=== PATIENT | female | born 1970 | race Two or more races ===

== ENCOUNTER 2024-04-23 02:07 | Emergency (ER) | payer MEDICAID, SELFPAY ==
[2024-04-23 02:08] VITALS: BMI 36.8
[2024-04-23 02:15] VITALS: BP 155/89; PULSE 84; RESP 19; TEMP 36.7; O2SAT 96
--- NOTE | 2024-04-23 02:50 | XR_ITS ---
Examination: CT abdomen and pelvis without contrast. Coronal 3-D reconstructions. Sagittal 2-D reconstructions. Date and time of exam:April 23, 2024 0307 hours COMPARISON: 12/17/2022 INDICATIONS: Onset right-sided flank pain today CTDI: vol (mGy): 6.71 DLP: (mGycm): 386 Technique: Axial images of the abdomen have been obtained, 3 mm slice thickness Intravenous contrast material has not been administered. Low dose protocols were performed. One or more of the following dose reduction techniques were used; automated exposure control, adjustment of the mA and/or KV according to patient size, use of iterative reconstruction technique. Findings: No focal liver or splenic lesions No gallstones No pancreatic or adrenal mass No renal or ureteral calculi, no hydronephrosis Normal appendix No bowel obstruction No bladder mass or bladder calculi IMPRESSION: No renal or ureteral calculi, no hydronephrosis Normal appendix
--- NOTE | 2024-04-23 02:51 | EDRME_ITS ---
Rapid Medical Screening Exam [facility] Arrival date/time: 04/23/24 02:07 53F with history of pancreatitis and pre-DM presents to ED with 1 day of flank pain (R>L). Chief Complaint: Back Pain/Injury Vital signs: Vital Signs Temperature 98.1 F 04/23/24 02:15 Pulse Rate 84 04/23/24 02:15 Respiratory Rate 19 04/23/24 02:15 Blood Pressure 155/89 H 04/23/24 02:15 Pulse Oximetry (%) 96 04/23/24 02:15 Oxygen Delivery Method Room Air 04/23/24 02:15
[2024-04-23] MEDS: KETOROLAC INJ 60 MG/2 ML VIAL IM (03:41)
[2024-04-23 03:45] LABS: Collection Type, Urine Clean Catch
[2024-04-23 03:53] LABS: Basophils % (Auto) 0 % (0-2.5); Eosinophils # (Auto) 0.1 Thou/mm3 (0.0-0.5); Eosinophils % (Auto) 1 % (0-10); Hematocrit 40.2 % (36.0-46.0); Hemoglobin 13.3 g/dL (12.0-16.0); Immature Granulocytes % (Auto) 0 % (0-0); Immature Granulocytes Auto 0.02 Thou/mm3 (0.00-0.00); Lymphocytes # (Auto) 2.6 Thou/mm3 (1.0-4.8); Lymphocytes % (Auto) 25 % (10-50); Mean Corpuscular HGB Conc 33.1 g/dl (31.0-37.0); Mean Corpuscular Hemoglobin 30.3 pg (25.0-35.0); Mean Corpuscular Volume 92 fL (80-100); Monocytes # (Auto) 0.6 Thou/mm3 (0.0-0.8); Monocytes % (Auto) 6 % (0-12); Neutrophils # (Auto) 6.9 Thou/mm3 (1.8-7.7); Neutrophils % (Auto) 67 % (37-80); Nucleated Red Blood Cell % 0 /100 WBC (0); Platelet Count 291 Thou/mm3 (140-440); RDW Standard Deviation 39.9 fL (36.4-46.3); Red Blood Count 4.39 Miln/mm3 (4.00-5.20); White Blood Count 10.3 Thou/mm3 (3.6-11.0)
[2024-04-23 04:07] LABS: Alanine Aminotransferase 33 U/L (10-49); Albumin, Serum 4.9 gm/dL (3.5-5.0); Albumin/Globulin Ratio 1.7 (1.2-2.2); Alkaline Phosphatase 102 U/L (46-116); Anion Gap 8 (7-16); Aspartate Amino Transferase 22 U/L (0-34); BUN/Creatinine Ratio 18 Ratio (12-20); Bilirubin,Total 1.4 mg/dL (0.3-1.2); Blood Urea Nitrogen 11 mg/dL (9-23); Calcium 9.7 mg/dL (8.3-10.6); Calcium (Corrected) 9.7 mg/dL (8.5-10.1); Carbon Dioxide 28.4 mMol/L (20.0-31.0); Chloride 105 mMol/L (98-107); Creatinine (Component) 0.6 mg/dL (0.6-1.3); Estimated Creatinine Clearance 92.4 mL/min (>60); Globulin 2.9 gm/dL (2.3-3.5); Glucose 101 mg/dL (74-106); Lipase 36 U/L (12-53); Osmolality,Calculated 280 (275-295); Potassium 3.6 mMol/L (3.4-5.1); Sodium 141 mMol/L (136-145); Total Protein 7.8 gm/dL (5.7-8.2); eGFR > 60 See Note
[2024-04-23 04:09] LABS: Bacteria,Urine 4+; Bilirubin,Urine Negative (Negative); Blood,Urine Trace (Negative); Clarity,Urine Clear (Clear/Hazy); Color,Urine Colorless (Lt Yel-Yel); Culture Indicated,Urine Yes; Glucose, Urine Negative (Negative); Ketones,Urine Negative (Negative); Leukocyte Esterase,Urine Positive (Negative); Nitrite,Urine Negative (Negative); PH,Urine 6.5 (5.0-7.0); Protein,Urine Negative (Neg - Trace); RBC,Urine 2 /hpf (0-3); Specific Gravity,Urine 1.008 (1.001-1.035); Squamous Epithelial Cell,Urine 10 /hpf (0-5); Urobilinogen,Urine Negative mg/dL (0.0-1.0); WBC,Urine 4 /hpf (0-5)
--- NOTE | 2024-04-23 04:29 | PRELIM_ITS ---
CT scan of the abdomen and pelvis without intravenous contrast (axial sections with sagittal and coronal reformats). April 23, 2024 at 0307 hours Clinical History: Flank pain. Comparison: Compared with the prior CT study dated December 17, 2022. Findings: Mild bilateral lower lobes atelectasis. The liver, gallbladder, pancreas, spleen, kidneys and adrenals are unremarkable on this noncontrast study. No evidence of bowel obstruction. The appendix is within normal limits. There is no mesenteric or retroperitoneal adenopathy. The urinary bladder is unremarkable. There is no free fluid or free air. The osseous structures are unremarkable. The uterus and ovaries are within normal limits. Impression: No evidence of acute intra-abdominal or pelvic pathology. No evidence of kidney or ureteral stones. Report Electronically Signed By: Merritt Guevara 04/23/2024 4:28:44 AM [EST]
[2024-04-23 04:33] LABS: Amphetamine/Methamp Scrn,U Negative (Negative); Barbiturate Screen,Urine Negative (Negative); Benzodiazepines Screen,Urine Negative (Negative); Benzoylecgonine Screen, Ur Negative (Negative); Fentanyl Screen,Urine Negative (Negative); Opiate Screen,Urine Negative (Negative); THC Screen,Urine Negative (Negative)
[2024-04-23 05:09] VITALS: BP 145/79; PULSE 73; RESP 18; TEMP 36.9; O2SAT 95
--- NOTE | 2024-04-23 05:37 | PD.EDBACK ---
ED Back Injury Pain RME/HPI General Chief Complaint: Back Pain/Injury Stated Complaint: LOWER BACK PAIN Time Seen by Provider: 04/23/24 03:54 Arrival date/time: 04/23/24 02:07 RME / HPI RME / HPI Narrative: 04/23/24 02:07 53F with history of pancreatitis and pre-DM presents to ED with 1 day of flank pain (R>L). ----- Dr. Marino?s Main ED Evaluation: 53yo female presents to the ED for a chief complaint of right mid-back pain x 1 day. No radiation or migration. Patient states her pain worsens on exertion. She denies any fever, chills, N/V/D, UTI symptoms or any other associated symptoms. No known allergies. Patient states her pain has improved after receiving pain medication here in the ED. Related Data Previous Rx's ?Medication ?Instructions ?Recorded hydrocodone 5 mg-acetaminophen 325 1 tab PO Q6H PRN pain #7 tabs 12/18/22 mg tablet ondansetron 4 mg disintegrating 4 mg PO Q8H PRN nausea and 12/18/22 tablet vomiting #15 tabs ibuprofen 400 mg tablet 400 mg PO Q6H PRN pain #20 tabs 04/23/24 Allergies Allergy/AdvReac Type Severity Reaction Status Date / Time No Known Allergies Allergy Verified 04/23/24 02:10 Review of Systems Review of Systems Systems Reviewed: All systems reviewed, normal except as documented Narrative Review of Systems: Gen: No fever, no chills, no weight loss EYES: No discharge, no visual changes, no pain HEENT: No ear pain, no congestion, no sore throat PULM: No shortness of breath, no cough, no congestion CV: No chest pain, no dyspnea on exertion, no palpitations GI: No nausea, no vomiting, no diarrhea, no pain, no constipation : No frequency, no urgency, no dysuria Musc/skel: No joint pain, + back pain Skin: No rash. Warm and dry. Psyc: No hallucinations, no depression Heme/Lymph: No easy bleeding or bruising tendencies Neuro: No weakness, no headache Past Medical History Past Medical History CARDIAC: Negative Cardiac Disorders RESPIRATORY: Negative Asthma GENITOURINARY: Negative Renal Disease ENDOCRINE: Negative Diabetes Mellitus Type 2 HEMATOLOGIC: Negative Sickle Cell Disease Social History SMOKING STATUS: Never smoker ED Exam Narrative Physical exam: GENERAL APPEARANCE: alert and oriented x 4, well-developed, well-nourished, no acute distress VITALS: All vitals were reviewed and the pulse ox is 95% on room air, which is normal according to my interpretation. HEENT: Normocephalic, atraumatic; pupils equal, round, reactive to light; EOMI; mucous membranes pink, moist; oropharynx clear NECK: Supple LUNGS: CTABL; no wheezes, no rales, no rhonchi HEART: Regular rate, regular rhythm; normal S1, S2; no murmurs ABDOMEN: non distended; normal BS; soft, no tenderness, no guarding, no rebound; no masses, no organomegaly, no hernia BACK: no CVA tenderness EXTREMITIES: atraumatic; no edema NEUROLOGIC: awake; alert and oriented x4; cranial nerves II-XII grossly intact; no focal sensory or motor deficits PSYCHIATRIC: appropriate mood and affect SKIN: warm, dry, normal color; no rashes Course Quality Measures none Orders Category Date Time Status CT abdomen pelvis wo con Stat Exams 04/23/24 02:50 Completed CBC Stat Lab 04/23/24 03:32 Completed CMP [Comprehensive Metabolic Panel] Stat Lab 04/23/24 03:32 Completed Drug Screen,Urine Stat Lab 04/23/24 03:24 Completed Lipase Stat Lab 04/23/24 03:32 Completed Urinalysis, C/S if Indicated Stat Lab 04/23/24 02:50 Completed Urine Culture Stat Lab 04/23/24 03:24 Completed Ketorolac Inj [Toradol Inj] Med 04/23/24 02:50 Discontinued 60 mg IM X1 ONE Vital Signs Vital signs: Vital Signs Temperature 98.1 F 04/23/24 02:15 Pulse Rate 84 04/23/24 02:15 Respiratory Rate 19 04/23/24 02:15 Blood Pressure 155/89 H 04/23/24 02:15 Pulse Oximetry (%) 96 04/23/24 02:15 Oxygen Delivery Method Room Air 04/23/24 02:15 Back Pain / Injury MDM Narrative MDM Narrative:: Scribe Attestation: 04/23/24 - Mary Beth Mueller am scribing for and in the presence of Dr. Marino. Patient data External records reviewed:: [facility] previous records (Per chart review, patient was seen here on 12/17/22 for pancreatitis.) Clinical information provided by:: patient Social determinants that could affect healthcare access:: none Patient has the following chronic illnesses:: none How is presenting disease/condition affected by chronic disease/condition?: no chronic disease Evaluation data The following diagnostics were reviewed and interpreted by me:: lab results and radiology exam(s) Lab and/or radiology exams considered but not ordered:: none Interpretation Summary: CBC is normal, CMP is normal, UA is unremarkable, UDS is negative, according to my interpretation. ----- [facility] Preliminary Report Draft Patient: ANAND SESAY [facility]. Record#: [id number] Birthdate: 1970 Age/Sex: 53 / F Location: [facility] Attending Dr: Ordering Physician: Date of Service: Procedure(s): Accession Number(s): cc: ~ CT scan of the abdomen and pelvis without intravenous contrast (axial sections with sagittal and coronal reformats). April 23, 2024 at 0307 hours Clinical History: Flank pain. Comparison: Compared with the prior CT study dated December 17, 2022. Findings: Mild bilateral lower lobes atelectasis. The liver, gallbladder, pancreas, spleen, kidneys and adrenals are unremarkable on this noncontrast study. No evidence of bowel obstruction. The appendix is within normal limits. There is no mesenteric or retroperitoneal adenopathy. The urinary bladder is unremarkable. There is no free fluid or free air. The osseous structures are unremarkable. The uterus and ovaries are within normal limits. Impression: No evidence of acute intra-abdominal or pelvic pathology. No evidence of kidney or ureteral stones. Report Electronically Signed By: Merritt Guevara 04/23/2024 4:28:44 AM [EST Medications / Prescriptions Medications or Prescriptions considered but not ordered:: none Medication administrations:: Medication Administration History Discontinued Medications Ketorolac Tromethamine (Ketorolac Inj 60 Mg/2 Ml Vial) 60 mg IM X1 ONE Stop: 04/23/24 02:51 Last Admin: 04/23/24 03:41 Dose: 60 mg Documented By: LEO see above Consultations Consultation(s) initiated? (list below): No Diagnosis Differential diagnosis back pain/injury: other (musculoskeletal pain, fracture, PE, pleurisy, pneumothorax) Most likely diagnosis given after review of the tests above:: see below Admission Indicated Admission indicated?: not indicated Admission Request Was there a request for admission?: No Disposition Plan Disposition Plan: Discharge Discharge Attestation Discharge Attestation: The patient and all family members were given an opportunity to ask questions and understood the discharge instructions. Discharge instructions specifically effects, indications for sooner follow up or return to the emergency department, and the expected course of current diagnosis. Patient condition: Stable Discharge Plan Plan Patient Disposition: HOME (Self Care) Disposition Comment: Stable for discharge Patient condition on transfer: Stable Prescriptions/Referrals Prescriptions/Med Rec: New ibuprofen 400 mg tablet 400 mg PO Q6H PRN (Reason: pain) Qty: 20 0RF No Action hydrocodone-acetaminophen 5-325 mg tablet 1 tab PO Q6H MDD 3 PRN (Reason: pain) Qty: 7 0RF ondansetron 4 mg tablet,disintegrating 4 mg PO Q8H PRN (Reason: nausea and vomiting) Qty: 15 0RF Referrals: [facility] [Outside] - In 1 week Problem List Clinical Impression: Back pain Patient/Caregiver Discharge Instructions Discharge Activity: activity as tolerated Education Materials: Back Exercises: Side Stretch Additional Instructions: Please return to the emergency department if you have any worsening or any further medical problems Otherwise you should follow-up with your primary care doctor or in the family health care clinic within the next several days Print Language: Polish Stand Alone Forms: Bella Award Info., Patient Portal Info Letter
== END 2024-04-23 05:49 | disposition home or self-care (01) ==
LOC: SERX 06:03
PROVIDERS: Physician Assistant; Emergency Provider Emergency Medicine; PCP Nurse Practitioner Family
DX: M54.89 Other dorsalgia (principal); R10.9 Unspecified abdominal pain
CPT/HCPCS: 36415; 74176; 80053; 80307; 81001; 81025; 83690; 85025; 87086; 96372; 99284; J1885

== ENCOUNTER → 2024-10-19 | Outpatient (CLI) | payer MEDICAID, SELFPAY ==
--- NOTE | 2024-10-19 15:45 | XR_ITS ---
Examination:Left hip AP, lateral, AP pelvis 3 views Technique: Hip AP lateral, AP pelvis, 3 views Exam date and time:October 11, 2024 1547 hours INDICATIONS: Left hip pain beginning 5 months ago. FINDINGS: Mild bilateral hip osteoarthritis No hip or pelvic fracture No avascular necrosis IMPRESSION: Mild bilateral hip osteoarthritis.
== END | disposition home or self-care (01) ==
PROVIDERS: PCP Nurse Practitioner Family; Referring Provider Nurse Practitioner Family; Visit Provider Nurse Practitioner Family
DX: M16.0 Bilateral primary osteoarthritis of hip (principal)
CPT/HCPCS: 73502

== ENCOUNTER → 2025-02-05 | Outpatient (CLI) | payer MEDICAID, SELFPAY ==
--- NOTE | 2025-02-05 14:46 | XR_ITS ---
Examination: Shoulder, right, 3 views Technique: Shoulder AP internal rotation, AP external rotation, Y view shoulder, 3 views Exam date and time : February 05, 2025, 1453 hours INDICATIONS: Right shoulder pain beginning 3 years ago. FINDINGS: Moderate osteopenia Moderate narrowing glenohumeral joint No fracture or shoulder dislocation IMPRESSION: Moderate narrowing glenohumeral joint
== END | disposition home or self-care (01) ==
LOC: CDIM 14:15
DX: M25.811 Other specified joint disorders, right shoulder (principal)
CPT/HCPCS: 73030